=== PATIENT | female | born 1990 | race American Indian/Alaskan Native ===

== ENCOUNTER 2018-05-10 03:07 | Emergency (ER) | payer SELFPAY ==
[2018-05-10 05:42] LABS: Bilirubin,Urine NEG (Negative); Blood,Urine NEG (Negative); Calcium Oxalate Crystals,Urine 1+; Color,Urine Yellow (Yellow); Mucus,Urine 3+ /HPF
[2018-05-10 09:54] VITALS: BP 106/67
--- NOTE | 2018-05-10 10:21 | Emergency Department Report ---
ED Headache HPI - General Chief Complaint: Headache Stated Complaint: HEADACHE DISCHARGE STOMACH PAIN Time Seen by Provider: 05/10/18 09:52 - History of Present Illness Initial Comments: Patient is a 27-year-old black female who is presenting with headache. Patient has a history of migraines and has had a headache for the past 2 days. Patient states there is some light sensitivity but no nausea vomiting at this time. The patient also is complaining of some lower abdominal crampiness with vaginal discharge. Patient denies any dysuria or abnormal bleeding at this time. Patient states crampiness is 3 out of 10 in severity. Patient has a low risk of secondary to a tubal ligation is not sexually active. Patient is not worried about STDs. Patient does state that she is using new soaps and that this could be a bacterial vaginosis or yeast infection. Allergies/Adverse Reactions: Allergies No Known Allergies Allergy (Verified 05/10/18 03:38) Home Medications: Ambulatory Orders Butalb/Acetamin/Caff 50-325-40 [Fioricet] 1 tab PO Q6HR PRN #12 tab 05/10/18 ED Review of Systems ROS: Stated complaint: HEADACHE DISCHARGE STOMACH PAIN Other details as noted in HPI Comment: All other systems reviewed and negative ED Past Medical Hx - Past Medical History Previous Medical History?: No - Surgical History Hx Cholecystectomy: Yes Additional Surgical History: tubal ligation - Social History Smoking Status: Current Every Day Smoker - Medications Home Medications: Home Medications Medication Instructions Recorded Confirmed Last Taken Type Butalb/Acetamin/Caff 50-325-40 1 tab PO Q6HR PRN #12 tab 05/10/18 Unknown Rx [Fioricet] ED Physical Exam - General Limitations: No Limitations General appearance: alert, in no apparent distress - Head Head exam: Present: atraumatic, normocephalic - Eye Eye exam: Present: normal appearance - ENT ENT exam: Present: mucous membranes moist - Neck Neck exam: Present: normal inspection - Respiratory Respiratory exam: Present: normal lung sounds bilaterally. Absent: respiratory distress, wheezes, rales, rhonchi - Cardiovascular Cardiovascular Exam: Present: regular rate, normal rhythm. Absent: systolic murmur, diastolic murmur, rubs, gallop - GI/Abdominal GI/Abdominal exam: Present: soft, normal bowel sounds. Absent: distended, tenderness, guarding - Extremities Exam Extremities exam: Present: normal inspection - Back Exam Back exam: Present: normal inspection - Neurological Exam Neurological exam: Present: alert, oriented X3 - Psychiatric Psychiatric exam: Present: normal affect, normal mood - Skin Skin exam: Present: warm, dry, intact, normal color. Absent: rash ED Course Vital Signs 05/10/18 05/10/18 05/10/18 03:24 07:48 09:53 Temperature 98.6 F Pulse Rate 58 L 57 L 65 Respiratory 16 18 18 Rate Blood Pressure 107/69 Blood Pressure 131/90 106/67 [Right] O2 Sat by Pulse 98 99 98 Oximetry ED Medical Decision Making - Lab Data Lab Results 05/10/18 Range/Units 05:09 Urine Color Yellow (Yellow) Urine Turbidity Clear (Clear) Urine pH 5.0 (5.0-7.0) Ur Specific [place] 1.031 H (1.003-1.030) Urine Protein 30 mg/dl (Negative) mg/dL Urine Glucose (UA) Neg (Negative) mg/dL Urine Ketones Tr (Negative) mg/dL Urine Blood Neg (Negative) Urine Nitrite Neg (Negative) Urine Bilirubin Neg (Negative) Urine Urobilinogen 2.0 (<2.0) mg/dL Ur Leukocyte Esterase Neg (Negative) Urine WBC (Auto) 4.0 (0.0-6.0) /HPF Urine RBC (Auto) 2.0 (0.0-6.0) /HPF U Epithel Cells (Auto) 3.0 (0-13.0) /HPF Calcium Oxalate Crystal 1+ Urine Mucus 3+ /HPF - Medical Decision Making Patient was started on Fioricet for migraine headaches and she'll be discharged home with follow her primary care physician. Regarding the patient's vaginal discharge. Patient will be empirically treated for a bacterial vaginosis and yeast infection. Morales be discharged. Critical care attestation.: If time is entered above; I have spent that time in minutes in the direct care of this critically ill patient, excluding procedure time. ED Disposition Clinical Impression: Vaginosis Migraine headache Qualifiers: Migraine type: unspecified Status migrainosus presence: without status migrainosus Intractability: not intractable Qualified Code(s): G43.909 - Migraine, unspecified, not intractable, without status migrainosus Disposition: TO HOME OR SELFCARE Is pt being admited?: No Does the pt Need Aspirin: No Condition: Stable Prescriptions: Butalb/Acetamin/Caff 50-325-40 [Fioricet] 1 tab PO Q6HR PRN #12 tab PRN Reason: Headache Referrals: PRIMARY CARE, [Primary Care Provider] - 3-5 Days
[2018-05-10] MEDS ORDERED: FLAGYL PO ONE (10:23)
[2018-05-10] MEDS ORDERED: DIFLUCAN PO ONE (11:00)
== END 2018-05-10 10:46 | disposition home or self-care (01) ==
LOC: ED 03:07
DX: G43.909 Migraine, unspecified, not intractable, without status migrainosus (principal); N76.0 Acute vaginitis; Z90.49 Acquired absence of other specified parts of digestive tract; Z98.51 Tubal ligation status; F17.200 Nicotine dependence, unspecified, uncomplicated
CPT/HCPCS: 81001; 99283

== ENCOUNTER 2018-05-15 23:03 | Emergency (ER) | payer SELFPAY ==
[2018-05-16] MEDS ORDERED: ASPIRIN PO ONE (00:07)
[2018-05-16 00:28] LABS: Basophils % (Auto) 0.4 % (0.0-1.8); Eosinophils # (Auto) 0.1 K/mm3 (0.0-0.4); Eosinophils % (Auto) 1.4 % (0.0-4.3); Hematocrit 37.5 % (30.3-42.9); Hemoglobin 12.9 gm/dl (10.1-14.3); Lymphocytes # (Auto) 4.3 K/mm3 (1.2-5.4); Lymphocytes % (Auto) 54.2 % (13.4-35.0); Mean Corpuscular HGB Conc 34 % (30-34); Mean Corpuscular Hemoglobin 33 pg (28-32); Mean Corpuscular Volume 97 fl (79-97); Monocytes # (Auto) 0.4 K/mm3 (0.0-0.8); Platelet Count 155 K/mm3 (140-440); Red Blood Count 3.87 M/mm3 (3.65-5.03); Red Cell Distribution Width 12.8 % (13.2-15.2)
[2018-05-16 01:11] LABS: BUN/Creatinine Ratio 11; Blood Urea Nitrogen 10 mg/dL (7-17); Calcium 9.6 mg/dL (8.4-10.2); Hemolysis Index 2
[2018-05-16 06:44] VITALS: BP 112/67
[2018-05-16] MEDS ORDERED: TORADOL IM ONE (07:26)
--- NOTE | 2018-05-16 07:29 | Emergency Department Report ---
ED Chest Pain HPI - General Chief Complaint: Chest Pain Stated Complaint: CHEST PAIN Time Seen by Provider: 05/16/18 07:15 Source: patient Mode of arrival: Ambulatory Limitations: No Limitations - History of Present Illness Initial Comments: 27-year-old female with no significant past medical history presents to the hospital complaints of right upper chest wall pain since 9 PM last night. Pain is constant, stabbing, rated 10/10 intensity, worse with movement and palpation. Patient denies shortness of breath but does state the pain increases with inspiration. She denies calf tenderness, edema, control pill use, or history of PE/DVT. Patient works at [employer] and performs overhead lifting. - Related Data Home Medications Medication Instructions Recorded Confirmed Last Taken Ranitidine HCl [Zantac 150 MG TAB] 150 mg PO PRN PRN 05/16/18 05/16/18 Unknown Previous Rx's Medication Instructions Recorded Last Taken Type Ibuprofen [Motrin] 600 mg PO Q8H PRN #30 tablet 05/16/18 Unknown Rx traMADol [Ultram 50 MG tab] 50 mg PO Q6HR PRN #20 tablet 05/16/18 Unknown Rx Allergies Allergy/AdvReac Type Severity Reaction Status Date / Time No Known Allergies Allergy Verified 05/10/18 03:38 Heart Score - HEART Score History: Slightly suspicious EKG: Normal Age: < 45 Risk factors: 1-2 risk factors (smoker) Troponin: < normal limit HEART Score: 1 ED Review of Systems ROS: Stated complaint: CHEST PAIN Other details as noted in HPI Comment: All other systems reviewed and negative ED Past Medical Hx - Past Medical History Previous Medical History?: No - Surgical History Hx Cholecystectomy: Yes Additional Surgical History: tubal ligation - Social History Smoking Status: Current Every Day Smoker Substance Use Type: None - Medications Home Medications: Home Medications Medication Instructions Recorded Confirmed Last Taken Type Ibuprofen [Motrin] 600 mg PO Q8H PRN #30 tablet 05/16/18 Unknown Rx Ranitidine HCl [Zantac 150 MG TAB] 150 mg PO PRN PRN 05/16/18 05/16/18 Unknown History traMADol [Ultram 50 MG tab] 50 mg PO Q6HR PRN #20 tablet 05/16/18 Unknown Rx ED Physical Exam - General Limitations: No Limitations - Other Other exam information: General: No limitations, patient is alert in no acute distress Head exam: Atraumatic, normocephalic Eyes exam: Normal appearance, ENT: Moist mucous membrane, normal oropharynx Neck exam: Normal inspection, full range of motion, no meningismus nontender Respiratory exam: Clear to auscultation bilateral, no wheezes, rales, crackles Cardiovascular: Normal rate and rhythm, normal heart sounds, reproducible right upper chest wall tenderness Abdomen: Soft, nondistended, and nontender, with normal bowel sounds, no rebound, or guarding Extremity: Full range of motion normal inspection no deformity, no calf tenderness or edema Back: Normal Inspection, full range of motion, no tenderness Neurologic: Alert, oriented x3, cranial nerves intact, no motor or sensory deficit Psychiatric: normal affect, normal mood Skin: Warm, dry, intact ED Course Vital Signs 05/15/18 05/16/18 05/16/18 23:07 03:15 03:38 Temperature 98.2 F 98.1 F Pulse Rate 69 48 L Respiratory 16 20 Rate Blood Pressure 121/101 98/64 O2 Sat by Pulse 100 100 Oximetry 05/16/18 05/16/18 05/16/18 04:41 05:00 06:00 Temperature Pulse Rate 55 L 61 56 L Respiratory 16 17 20 Rate Blood Pressure 113/76 109/81 112/67 O2 Sat by Pulse 100 100 100 Oximetry - Reevaluation(s) Reevaluation #1: 05/16/18 07:28 Toradol provided for pain. Patient will be driving home LEOLA score - Leola Score Age > 65: (0) No Aspirin use within the Past 7 Days: (0) No 3 or more CAD Risk Factors: (0) No 2 or more Angina events in past 24 hrs: (0) No Known CAD with more than 50% Stenosis: (0) No Elevated Cardiac Markers: (0) No ST Deviation Greater than 0.5mm: (0) No LEOLA Score: 0 ED Medical Decision Making - Lab Data Result diagrams: 05/16/18 00:10 05/16/18 00:10 Lab Results 05/16/18 05/16/18 05/16/18 Range/Units 00:10 00:10 00:10 WBC 7.9 (4.5-11.0) K/mm3 RBC 3.87 (3.65-5.03) M/mm3 Hgb 12.9 (10.1-14.3) gm/dl Hct 37.5 (30.3-42.9) % MCV 97 (79-97) fl MCH 33 H (28-32) pg MCHC 34 (30-34) % RDW 12.8 L (13.2-15.2) % Plt Count 155 (140-440) K/mm3 Lymph % (Auto) 54.2 H (13.4-35.0) % [place] % (Auto) 5.0 (0.0-7.3) % Eos % (Auto) 1.4 (0.0-4.3) % Baso % (Auto) 0.4 (0.0-1.8) % Lymph # 4.3 (1.2-5.4) K/mm3 [place] # 0.4 (0.0-0.8) K/mm3 Eos # 0.1 (0.0-0.4) K/mm3 Baso # 0.0 (0.0-0.1) K/mm3 Seg Neutrophils % 39.0 L (40.0-70.0) % Seg Neutrophils # 3.1 (1.8-7.7) K/mm3 D-Dimer (0-234) ng/mlDDU Sodium 144 (137-145) mmol/L Potassium 3.9 (3.6-5.0) mmol/L Chloride 107.2 H (98-107) mmol/L Carbon Dioxide 24 (22-30) mmol/L Anion Gap 17 mmol/L BUN 10 (7-17) mg/dL Creatinine 0.9 (0.7-1.2) mg/dL Estimated GFR > 60 ml/min BUN/Creatinine Ratio 11 % Glucose 91 (65-100) mg/dL Calcium 9.6 (8.4-10.2) mg/dL Troponin T < 0.010 (0.00-0.029) ng/mL HCG, Qual Negative (Negative) 05/16/18 05/16/18 05/16/18 Range/Units 03:05 05:15 05:15 WBC (4.5-11.0) K/mm3 RBC (3.65-5.03) M/mm3 Hgb (10.1-14.3) gm/dl Hct (30.3-42.9) % MCV (79-97) fl MCH (28-32) pg MCHC (30-34) % RDW (13.2-15.2) % Plt Count (140-440) K/mm3 Lymph % (Auto) (13.4-35.0) % [place] % (Auto) (0.0-7.3) % Eos % (Auto) (0.0-4.3) % Baso % (Auto) (0.0-1.8) % Lymph # (1.2-5.4) K/mm3 [place] # (0.0-0.8) K/mm3 Eos # (0.0-0.4) K/mm3 Baso # (0.0-0.1) K/mm3 Seg Neutrophils % (40.0-70.0) % Seg Neutrophils # (1.8-7.7) K/mm3 D-Dimer < 135.00 (0-234) ng/mlDDU Sodium (137-145) mmol/L Potassium (3.6-5.0) mmol/L Chloride (98-107) mmol/L Carbon Dioxide (22-30) mmol/L Anion Gap mmol/L BUN (7-17) mg/dL Creatinine (0.7-1.2) mg/dL Estimated GFR ml/min BUN/Creatinine Ratio % Glucose (65-100) mg/dL Calcium (8.4-10.2) mg/dL Troponin T < 0.010 < 0.010 (0.00-0.029) ng/mL HCG, Qual (Negative) - EKG Data -: EKG Interpreted by Mn EKG shows normal: sinus rhythm, axis (qrs 64), QRS complexes, ST-T waves (no stemi/t wave inv) Rate: bradycardia (56) - EKG Data When compared to previous EKG there are: previous EKG unavailable - Medical Decision Making Patient has reproducible right upper chest wall tenderness without reports of trauma. Patient does perform heavy lifting at work. EKG and laboratory evaluation unremarkable and suspected patient has a muscle strain. She will be treated symptomatically and outpatient follow-up encouraged. Critical Care Time: No Critical care attestation.: If time is entered above; I have spent that time in minutes in the direct care of this critically ill patient, excluding procedure time. ED Disposition Clinical Impression: Chest wall muscle strain Disposition: DC- TO HOME OR SELFCARE Is pt being admited?: No Does the pt Need Aspirin: No Condition: Stable Instructions: Muscle Strain (ED) Additional Instructions: Take the medication as prescribed. Follow up with the primary care doctor or clinic provided. Return if symptoms worsen as indicated by your discharge instructions. Prescriptions: Ibuprofen [Motrin] 600 mg PO Q8H PRN #30 tablet PRN Reason: Pain traMADol [Ultram 50 MG tab] 50 mg PO Q6HR PRN #20 tablet PRN Reason: Pain Referrals: [facility] [Provider Group] - 3-5 Days BARBRA CHIU MD [Staff Physician] - 3-5 Days Forms: Work/School Release Form(ED) Time of Disposition: 07:31
== END 2018-05-16 08:30 | disposition home or self-care (01) ==
LOC: ED 23:03
DX: S29.011A Strain of muscle and tendon of front wall of thorax, initial encounter (principal); Z90.49 Acquired absence of other specified parts of digestive tract; Z98.51 Tubal ligation status; F17.200 Nicotine dependence, unspecified, uncomplicated; X58.XXXA Exposure to other specified factors, initial encounter; Y93.89 Activity, other specified; Y92.89 Other specified places as the place of occurrence of the external cause; Y99.8 Other external cause status
CPT/HCPCS: 36415; 80048; 84484; 84703; 85025; 85379; 93005; 93010; 99284